=== PATIENT | male | born 2000 | race Two or more races ===

== ENCOUNTER 2021-11-15 10:57 | Emergency (ER) | payer SELFPAY ==
[~2021-11-15] VITALS: Ht 180.3 cm; Wt 87.0 kg
[2021-11-15] MEDS ORDERED: ACETAMINOPHEN 325MG TABLET PO ONE (11:30)
[2021-11-15 13:09] VITALS: BP 120/60
== END 2021-11-15 13:10 | disposition home or self-care (01) ==
LOC: ER 10:57
DX: T40.2X1A Poisoning by other opioids, accidental (unintentional), initial encounter (principal); Y92.89 Other specified places as the place of occurrence of the external cause
CPT/HCPCS: 99282